=== PATIENT | female | born 1960 | race Caucasian/White ===

== ENCOUNTER 2019-06-13 21:35 | Inpatient (IN) | payer MEDICAID ==
[~2019-06-13] VITALS: Ht 157.5 cm; Wt 107.1 kg
[2019-06-13 21:41] VITALS: Ht 157.5 cm; Wt 107.1 kg
--- NOTE | 2019-06-13 21:43 | NUR ---
EKG IN PROGRESS
--- NOTE | 2019-06-13 22:19 | NUR ---
PT CAME TO ED CO PRESSURE CHEST PAIN SINCE 1930. PT STS THE PAIN IS PRESSURE PAIN THAT RADIATES TO THE SHOULDERS, 6/. PT STS SHE HAS FELT WEAK FOR ABOUT 1 WEEK. PT STS SHE HAS NEVER EXPERIENCED THIS. PT DOES HAVE HX OF HTN. PT STS THE PAIN HAS MADE HER FEEL LIKE SHE IS GOING TO "PASS OUT". PT STS SHE DID NOT EXPERIENCE A SYMCOPABLE EPISODE. DR. MATTA AT BEDSIDE FOR MSE. NO S/S OF DISTRESS. RESP E/U. PT A/O X4. DAUGHTER AT BEDSIDE. COMFORT MEASURES IMPLEMENTED. WILL CONTINUE TO MONITOR.
--- NOTE | 2019-06-13 22:40 | NUR ---
PT MEDICATED PER ORDER. PT VERBALIZED UNDERSTANDING OF MEDICATION TEACHING. SEE EMAR FOR DETAILS.
[2019-06-13 22:44] LABS: BASOPHIL % 0.5 % (0-2); PLATELET COUNT 216 x10^3mcL (130-400); RED CELL DISTRIBUTION WIDTH 12.9 % (11.5-14.5)
[2019-06-13 22:59] LABS: CALCIUM 9.1 mg/dL (8.5-10.1); CARBON DIOXIDE 31.2 mmol/L (21-32); CHLORIDE SERUM 104 mmol/L (98-107); GFR1 > 60 mL/min; GLUCOSE SERUM 139 mg/dL (74-106); POTASSIUM SERUM 4.2 mmol/L (3.5-5.1); SODIUM SERUM 142 mmol/L (136-145)
[2019-06-13 23:03] LABS: ALBUMIN 3.8 g/dL (3.4-5.0); ALKALINE PHOSPHATASE 88 U/L (46-116); ALT/SGPT 56 U/L (14-59); AST/SGOT 28 U/L (15-37); BILIRUBIN TOTAL 0.3 mg/dL (0.20-1.00); MAGNESIUM 1.8 mg/dL (1.8-2.4); TOTAL PROTEIN, SERUM 8.1 g/dL (6.4-8.2)
[2019-06-13 23:04] LABS: CHOLESTEROL 252 mg/dL (<200); HDL CHOLESTEROL 31 mg/dL (40-60)
[2019-06-14] MEDS ORDERED: HCTZ/LISINOPRIL1 TA2 PO (00:22)
--- NOTE | 2019-06-14 00:30 | NUR ---
REPORT GIVEN TO RICHARD ON [facility] FOR CONTINUATION OF CARE.
--- NOTE | 2019-06-14 01:23 | NUR ---
RECEIVED PT FROM ER. PT IS A/O X4. DAUGHTER AT BEDSIDE. DR. MONTAÑO AT BEDSIDE. PT DENIES CP AT THIS TIME. DENIES IZQUIERDO. TELE #4 READING NSR. BP 142/70 (90) HR 71. PULSES ARE PALPABLE AND EVEN. NO EDEMA PRESENT. BREATHING IS EVEN AND UNLABORED ON RA WITH SAO2 OF 97%. LUNG SOUNDS ARE CTA. DENIES SOB. ABD IS MILDLY DISTENDED. BS ACTIVE IN ALL 4Q. C/O EXCESSIVE BURPING. DENIES ANY DYSURIA. BRP. AMBULATORY. MILD GENERALIZED WEAKNESS WHEN EXPERIENCING SOB. SKIN INTACT. DENIES PAIN. IV TO LAC IS INTACT AND PATENT. BED IN LOWEST POSITION. ENCOURAGED PT TO USE CALL LIGHT IF IN NEED OF ANY ASSISTANCE OR EXPERIENCING ANY DISCOMFORT. WILL CONTINUE TO MONITOR.
[2019-06-14 01:24] VITALS: BP 142/70
--- NOTE | 2019-06-14 03:30 | NUR ---
PT IS SLEEPING BUT EASILY AROUSABLE WHEN SPOKEN TO. BREATHING IS EVEN AND UNLABORED. NO SOB. PT DENIES PAIN AT THIS TIME. BED IN LOWEST POSITION. CALL LIGHT WITHIN REACH. WILL CONTINUE TO MONITOR.
[2019-06-14 05:57] VITALS: BP 138/76
--- NOTE | 2019-06-14 06:12 | NUR ---
PT SLEPT IN INTERVALS THROUGHOUT THE NIGHT. PT COMPLIED WITH NURSING CARE THROUGHOUT SHIFT WITH NO ACUTE EVENTS OVERNIGHT. COMFORT AND SAFETY MEASURES MAINTAINED. ALL NEEDS ASSESSED AND ATTENDED TO. WILL CONTINUE TO MONITOR AND ENDORSE CARE TO DAY SHIFT NURSE.
[2019-06-14 06:32] LABS: BASOPHIL % 0.9 % (0-2); PLATELET COUNT 195 x10^3mcL (130-400); RED CELL DISTRIBUTION WIDTH 12.9 % (11.5-14.5)
[2019-06-14 07:05] LABS: CALCIUM 8.9 mg/dL (8.5-10.1); CARBON DIOXIDE 28.6 mmol/L (21-32); CHLORIDE SERUM 105 mmol/L (98-107); CREATININE SERUM 0.9 mg/dL (0.6-1.0); GFR1 > 60 mL/min; GLUCOSE SERUM 113 mg/dL (74-106); PHOSPHOROUS 4.6 mg/dL (2.5-4.9); POTASSIUM SERUM 3.9 mmol/L (3.5-5.1); SODIUM SERUM 143 mmol/L (136-145)
[2019-06-14 08:42] VITALS: BP 121/73
[2019-06-14 09:36] LABS: CHOLESTEROL/HDL RATIO 7.5
[2019-06-14 11:27] VITALS: BP 103/50
--- NOTE | 2019-06-14 12:17 | NUR ---
PT HAVING ECHO DONE NOW.
--- NOTE | 2019-06-14 13:58 | NUR ---
IN TO SEE PATIENT AND ASSESS NEEDS BEFORE GOING TO LUNCH. PAITENT SITTING COMFORTABLY AT EDGE OF BED WITH DAUGHTER AT BEDSIDE. ALL NEEDS MET. WILL REASSESS AFTER LUNCH.
[2019-06-14 15:10] LABS: microscopic required? NO
[2019-06-14 15:30] LABS: UA SPECIFIC GRAVITY 1.015 (1.005-1.035); urine erythrocyte NEGATIVE (NEGATIVE)
[2019-06-14 15:34] LABS: AMPHETAMINE QUAL UR NONE DETECTED (See below)
--- NOTE | 2019-06-14 15:57 | NUR ---
NOTIFIED DR DELVALLE OF DR OLIVER'S NOTES. PATIENT STABLE FOR DISCHARGE FROM A CARDIAC STANDPOINT WITH F/U OUTPATIENT STRESS TEST. DR DELVALLE TO BEGIN DISCHARGE PAPERWORK.
[2019-06-14] MEDS ORDERED: ATORVASTATIN CA40 M1 PO (16:02)
--- NOTE | 2019-06-14 16:05 | NUR ---
Discount pharmacy card and list to low cost medical clinics given to patient by Erna Zaragoza.
[2019-06-14 16:56] VITALS: BP 103/50
[2019-06-14 17:34] VITALS: BP 145/84
--- NOTE | 2019-06-14 17:55 | NUR ---
PATIENT STABLE FOR DISCHARGE PER MD. DISCHARGE INSTRUCTIONS AND SUMMARY DISCUSSED WITH PATIENT AND DAUGHTER.BOTH VERBALIZED UNDERSTANDING AND AGREE TO FOLLOW UP WITH PCP IN 10 DAYS OR TO RETURN TO ED IF SYMPTOMS RETURN OR WORSEN. ID BANDS CUT. IV REMOVED AND IV POLE CLEARED. TELE MONITOR REOMVED AND MONITOR NOTIFIED. PATIENT ESCORTED TO LOBBY.
== END 2019-06-14 17:55 | disposition home or self-care (01) | DRG 756 ==
LOC: ED 21:35 → DU 23:47
PROVIDERS: Emergency Medicine; ADMIT Internal Medicine
DX: F41.8 Other specified anxiety disorders (principal); E66.01 Morbid (severe) obesity due to excess calories; F43.0 Acute stress reaction; K21.9 Gastro-esophageal reflux disease without esophagitis; J32.2 Chronic ethmoidal sinusitis; E78.5 Hyperlipidemia, unspecified; Z68.39 Body mass index [BMI] 39.0-39.9, adult; Z87.891 Personal history of nicotine dependence
CPT/HCPCS: 83880; G0378; J2405; J3490; J8597; Q0092